=== PATIENT | male | born 1945 | race Caucasian/White ===

== ENCOUNTER → 2016-12-30 | Outpatient (CLI) | payer OTHER, MEDICARE ==
[~2016-12-30] MED LIST: BACL10TA PO; BETH25TA2 PO; BUSP5TAB59 PO; DOCU-94 PO; FEXO1TAB49 PO; FINA5TAB PO; FLUT0.15 NAE; INSDGI SC; INSPMPHMLG SQ; MAGN400T6 PO; MELA1TAB5 PO; METO25TA56 PO; PANC6000 PO; POTA1POW PO; PRIM50TA29 PO; PRLSR20 PO; SIMV40TA2 PO; SITA100T3 PO; TAMS0.4C38 PO; ZONI1CAP18 PO
[2016-12-30 13:32] LABS: MEAN CORPUSCULAR HGB CONC 29.9 g/dl (32-36); MEAN PLATELET VOLUME 10.5 fL (7.4-10.4); PLATELET COUNT 940 K/uL (130-400)
[2016-12-30 13:57] LABS: ACANTHOCYTES 2+; ANISOCYTOSIS PRESENT; COMPLETE YES; GIANT PLATELETS 2+; HEMATOCRIT 24.1 % (42-52); HYPOCHROMIA PRESENT; LYMPH ABS # 2.25 K/uL (1.2-3.4); LYMPHOCYTE % 15.2 %; MEAN CELL VOLUME 75.1 fL (80-100); MEAN CORPUSCULAR HEMOGLOBIN 22.4 pg (25-34); MICROCYTOSIS PRESENT; NEUTROPHILS % 79.4 %; POIKILOCYTOSIS PRESENT; RED BLOOD COUNT 3.21 M/uL (4.7-6.1); TARGET CELLS 3+; WHITE BLOOD COUNT 14.79 K/uL (4.8-10.8)
[2016-12-30 13:58] LABS: ALT/SGPT 32 U/L (12-78); AST/SGOT 24 U/L (15-37); BLOOD UREA NITROGEN 17 mg/dl (7-18); BUN/CREATININE RATIO 28.8 (10-20); CALCIUM 7.8 mg/dl (8.5-10.1); CARBON DIOXIDE 26 mmol/L (21-32); CHLORIDE 106 mmol/L (98-107); GLUCOSE 122 mg/dl (70-99); POTASSIUM 4.8 mmol/L (3.5-5.1); SODIUM 139 mmol/L (136-145)
[2016-12-30 14:01] LABS: ALB/GLOB RATIO 0.6 (0.9-2); ALKALINE PHOSPHATASE 211 U/L (45-117)
[2017-01-01 16:36] LABS: ALBUMIN 2.6 G/DL (3.8-4.8); GAMMA GLOBULIN 1.4 G/DL (0.8-1.7); MONOCLONAL PROTEIN BAND 1 1.1 G/DL (NOT DETECTED); TOTAL PROTEIN 5.8 G/DL (6.2-8.3)
[2017-01-05 08:43] LABS: ALBUMIN % 11.48 %; ALPHA-2-GLOBULIN % 15.94 %; BETA GLOBULIN % 31.81 %; CREATININE UR 103 MG/DL (20-370)
== END | disposition home or self-care (01) ==
LOC: C.LABBC 11:53
PROVIDERS: ATTEND Orthopaedic Surgery Orthopaedic Surgery of the Spine
DX: M54.5 Low back pain (principal); Z85.46 Personal history of malignant neoplasm of prostate

== ENCOUNTER → 2017-01-01 | Outpatient (CLI) | payer OTHER, MEDICARE ==
[~2017-01-01] MED LIST changes: +GADAVIST IV PRN
--- NOTE | 2017-01-01 15:25 | DIAGNOSTIC IMAGING REPORT ---
MRI OF THE LUMBAR SPINE WITH AND WITHOUT CONTRAST CLINICAL HISTORY: Lower back pain. History of pancreatic cancer. Evaluate for metastatic disease. COMPARISON STUDY: No previous studies for comparison. TECHNIQUE: Utilizing a 1.5 Michelle magnet and dedicated coil, multiplanar, multiecho imaging of the lumbar spine was performed before and after uneventful IV administration of 7 mL of Gadavist. FINDINGS: For purposes of numbering on this exam, the L5-S1 disc space is assigned to axial image 28 of 30. There is a transitional vertebra at the lumbosacral junction which is designated as S1 for purposes of numbering on this exam. This is partially lumbarized. When utilizing this numbering scheme, the conus terminates at the L1-L2 level. There is no intracanalicular mass or fluid collection. There is no abnormal enhancement within the lumbar canal. Scattered T1 and T2 hyperintense lesions within the lumbar spine represent hemangiomas. Mild loss of height of the super endplate of L4 is noted with Schmorl's node. This is benign. L1-2: The central canal and neural foramina are patent. L2-3: The central canal and neural foramen are patent. L3-4: There is normal disc bulge with mild facet arthrosis. Central canal and neural foramen are patent. L4-5: There is mild facet arthrosis and ligamentous hypertrophy. The central canal and neural foramen are patent. L5-S1: The central canal and neural foramen are patent. IMPRESSION: 1. No evidence of metastatic disease within the lumbar spine by MRI. 2. Mild old compression deformity of the superior endplate of L4 with an associated Schmorl's node. 3. Transitional vertebra at the lumbosacral junction. Please see above numbering scheme of the lumbar spine. 4. Mild multilevel degenerative disc disease and facet arthrosis without significant central canal or neural foraminal stenosis. Electronically signed by: Dante Burns M.D. 01/01/2017 3:23 PM Dictated Date/Time: 01/01/2017 3:13 PM
== END | disposition home or self-care (01) ==
LOC: C.MRIBC 13:27
PROVIDERS: ATTEND Orthopaedic Surgery Orthopaedic Surgery of the Spine
DX: M54.5 Low back pain (principal); Z85.07 Personal history of malignant neoplasm of pancreas